=== PATIENT | female | born 1950 | race Caucasian/White ===

== ENCOUNTER → 2023-09-03 09:53 | Outpatient (REF) | payer MEDICARE, OTHER, SELFPAY ==
[2023-09-03 19:18] LABS: Urine Albumin 2+ (Neg - Trace); Urine Bilirubin 1+ (Negative); Urine Character Slightly Cloudy (Clear); Urine Color Yellow; Urine Glucose Negative (Negative); Urine Ketone Negative (Negative); Urine Leukocyte 2+ (Negative); Urine Nitrite Positive (Negative); Urine Occult Blood 4+ (Negative); Urine Specific Gravity 1.015 (<1.030); Urine Urobilinogen Negative (Neg - 1+)
[2023-09-03 19:25] LABS: Urine Bacteria Moderate (Negative); Urine White Cell >100 /HPF (0-5)
== END ==
LOC: CLAB 09:53
PROVIDERS: ATTENDING PHYSICIAN Nurse Practitioner Family
DX: R30.0 Dysuria (principal); R35.0 Frequency of micturition; Z13.89 Encounter for screening for other disorder
CPT/HCPCS: 81003; 81015; 87077; 87086; 87186

== ENCOUNTER → 2023-11-21 11:38 | Outpatient (REF) | payer MEDICARE, OTHER, SELFPAY ==
[2023-11-21 12:22] LABS: % Basophils 0.8 % (0-2); % Eosinophils 2.4 % (0-6); % Immature Granulocytes 0.1 % (0-0.5); % Lymphocytes 33.5 % (20.5-51.1); % Monocytes 9.3 % (1.7-9.3); % Neutrophils 53.9 % (42.2-75.2); Absolute Basophils 0.1 10^3/uL (0-0.2); Absolute Eosinophils 0.2 10^3/uL (0-0.7); Absolute Lymphocytes 2.7 10^3/uL (1.2-3.4); Absolute Monocytes 0.7 10^3/uL (0.1-0.6); Absolute Neutrophils 4.3 10^3/uL (1.4-6.5); Hematocrit 40.5 % (37.0-47.0); Hemoglobin 13.7 g/dL (12.0-16.0); Mean Corp Hgb Conc. 33.8 g/dL (33.0-37.0); Mean Corpuscular Hgb 29.2 pg (27.0-31.0); Mean Corpuscular Volume 86.4 fL (81.0-99.0); Mean Platelet Volume 10.3 fL (7.4-10.4); Nucleated Red Blood Cells % 0 %; Platelet Count 333 10^3/uL (130-400); Red Blood Cell Count 4.69 10^6/uL (4.20-5.40); Red Cell Dist. Width 13.3 % (11.5-14.5)
[2023-11-21 12:46] LABS: ALT (SGPT) 26 U/L (0-35); AST (SGOT) 23 U/L (14-36); Albumin 4.4 g/dl (3.5-5.0); Alkaline Phosphatase 62 U/L (38-126); Blood Urea Nitrogen 18 mg/dl (7-17); Calcium 9.9 mg/dl (8.4-10.2); Carbon Dioxide 29 mmol/L (22-30); Chloride 96 mmol/L (98-107); Glucose 118 mg/dl (70-99); HDL Cholesterol 70 mg/dl; LDL Cholesterol, Calculated 58 mg/dl; Potassium 4.3 mmol/L (3.5-5.1); Sodium 136 mmol/L (135-145); Total Bilirubin 0.7 mg/dl (0.2-1.3); Total Cholesterol 161 mg/dl (50-199); Triglyceride 165 mg/dl (10-149); Very Low Density Lipoprotein 33 mg/dl (0-30); eGFR > 60.00
[2023-11-21 14:14] LABS: Urine Albumin Negative (Neg - Trace); Urine Bilirubin Negative (Negative); Urine Character Clear (Clear); Urine Color Yellow; Urine Glucose Negative (Negative); Urine Ketone Negative (Negative); Urine Leukocyte 1+ (Negative); Urine Nitrite Negative (Negative); Urine Occult Blood Negative (Negative); Urine Specific Gravity 1.015 (<1.030); Urine Urobilinogen Negative (Neg - 1+)
[2023-11-21 15:19] LABS: Urine Amorphous Seen; Urine Red Blood Cell 0-2 /HPF (0-2); Urine Squamous Cell 16-20 /LPF (Few)
== END ==
LOC: REG 11:38
PROVIDERS: ATTENDING PHYSICIAN Internal Medicine Geriatric Medicine; REFERRING PHYSICIAN Internal Medicine Cardiovascular Disease
DX: R79.89 Other specified abnormal findings of blood chemistry (principal); E55.9 Vitamin D deficiency, unspecified; E78.00 Pure hypercholesterolemia, unspecified; I10 Essential (primary) hypertension; R32 Unspecified urinary incontinence; L53.9 Erythematous condition, unspecified; L72.3 Sebaceous cyst; R73.03 Prediabetes; E01.0 Iodine-deficiency related diffuse (endemic) goiter; M17.12 Unilateral primary osteoarthritis, left knee; G40.909 Epilepsy, unspecified, not intractable, without status epilepticus; Z87.39 Personal history of other diseases of the musculoskeletal system and connective tissue; Z13.31 Encounter for screening for depression; Z23 Encounter for immunization
CPT/HCPCS: 36415; 80053; 80061; 81003; 81015; 82306; 83704; 85025

== ENCOUNTER → 2024-03-19 11:38 | Outpatient (REF) | payer MEDICARE, OTHER, SELFPAY | LOC: WDC 11:38 | PROVIDERS: ATTENDING PHYSICIAN Internal Medicine Geriatric Medicine | DX: Z12.31 Encounter for screening mammogram for malignant neoplasm of breast (principal) | CPT/HCPCS: 77063; 77067 ==

== ENCOUNTER → 2024-04-06 11:08 | Outpatient (REF) | payer MEDICARE, OTHER, SELFPAY ==
[2024-04-06 12:31] LABS: % Basophils 0.9 % (0-2); % Eosinophils 1.8 % (0-6); % Immature Granulocytes 0.3 % (0-0.5); % Lymphocytes 30.8 % (20.5-51.1); % Monocytes 12.6 % (1.7-9.3); % Neutrophils 53.6 % (42.2-75.2); Absolute Basophils 0.1 10^3/uL (0-0.2); Absolute Eosinophils 0.1 10^3/uL (0-0.7); Absolute Lymphocytes 2.4 10^3/uL (1.2-3.4); Absolute Neutrophils 4.1 10^3/uL (1.4-6.5); Hematocrit 41.1 % (37.0-47.0); Hemoglobin 14.2 g/dL (12.0-16.0); Mean Corp Hgb Conc. 34.5 g/dL (33.0-37.0); Mean Corpuscular Hgb 29.7 pg (27.0-31.0); Mean Platelet Volume 10.6 fL (7.4-10.4); Nucleated Red Blood Cells % 0 %; Platelet Count 322 10^3/uL (130-400); Red Blood Cell Count 4.78 10^6/uL (4.20-5.40); White Blood Cell Count 7.7 10^3/uL (4.8-10.8)
[2024-04-06 13:25] LABS: ALT (SGPT) 24 U/L (0-35); AST (SGOT) 21 U/L (14-36); Albumin 4.8 g/dl (3.5-5.0); Alkaline Phosphatase 53 U/L (38-126); Blood Urea Nitrogen 20 mg/dl (7-17); Calcium 9.9 mg/dl (8.4-10.2); Carbon Dioxide 31 mmol/L (22-30); Chloride 90 mmol/L (98-107); Glucose 102 mg/dl (70-99); Potassium 4.3 mmol/L (3.5-5.1); Sodium 132 mmol/L (135-145); Total Bilirubin 0.9 mg/dl (0.2-1.3); Total Protein 7.1 g/dl (6.3-8.2); eGFR > 60.00
[2024-04-06 13:33] LABS: Glycohemoglobin (HgbA1c) 6.3 % (4.0-5.6)
== END ==
LOC: REG 11:08
PROVIDERS: ATTENDING PHYSICIAN Internal Medicine Geriatric Medicine; REFERRING PHYSICIAN Internal Medicine Cardiovascular Disease
DX: R32 Unspecified urinary incontinence (principal); L53.9 Erythematous condition, unspecified; L72.3 Sebaceous cyst; I10 Essential (primary) hypertension; E78.2 Mixed hyperlipidemia; R73.03 Prediabetes; E01.0 Iodine-deficiency related diffuse (endemic) goiter; M17.12 Unilateral primary osteoarthritis, left knee; G40.909 Epilepsy, unspecified, not intractable, without status epilepticus; Z87.39 Personal history of other diseases of the musculoskeletal system and connective tissue; Z13.31 Encounter for screening for depression; E55.9 Vitamin D deficiency, unspecified; E87.1 Hypo-osmolality and hyponatremia
CPT/HCPCS: 36415; 80053; 83036; 85025

== ENCOUNTER → 2024-11-06 11:13 | Outpatient (REF) | payer MEDICARE, OTHER, SELFPAY ==
[2024-11-06 12:23] LABS: ALT (SGPT) 24 U/L (0-35); AST (SGOT) 18 U/L (14-36); Albumin 4.9 g/dl (3.5-5.0); Alkaline Phosphatase 55 U/L (38-126); Blood Urea Nitrogen 28 mg/dl (7-17); Calcium 9.9 mg/dl (8.4-10.2); Carbon Dioxide 28 mmol/L (22-30); Chloride 97 mmol/L (98-107); Glucose 120 mg/dl (70-99); HDL Cholesterol 74 mg/dl; LDL Cholesterol, Calculated 76 mg/dl; Potassium 4.7 mmol/L (3.5-5.1); Sodium 138 mmol/L (135-145); Total Bilirubin 0.8 mg/dl (0.2-1.3); Total Cholesterol 169 mg/dl (50-199); Total Protein 7.4 g/dl (6.3-8.2); Triglyceride 96 mg/dl (10-149); Very Low Density Lipoprotein 19 mg/dl (0-30); eGFR > 60.00
[2024-11-06 12:36] LABS: Urine Albumin 1+ (Neg - Trace); Urine Bilirubin Negative (Negative); Urine Character Clear (Clear); Urine Color Yellow; Urine Glucose Negative (Negative); Urine Ketone Negative (Negative); Urine Leukocyte 2+ (Negative); Urine Nitrite Negative (Negative); Urine Occult Blood Negative (Negative); Urine Urobilinogen Negative (Neg - 1+)
[2024-11-06 12:55] LABS: TSH Reflex To Free T4 0.69 uIU/ml (0.47-4.68)
[2024-11-06 13:01] LABS: Urine Protein < 5 mg/dl
[2024-11-06 13:14] LABS: Vitamin B12 556 pg/ml (239-931)
[2024-11-06 13:53] LABS: Urine Bacteria Few (Negative); Urine Red Blood Cell 0-2 /HPF (0-2); Urine Squamous Cell >30 /LPF (Few)
[2024-11-06 14:00] LABS: Glycohemoglobin (HgbA1c) 6.3 % (4.0-5.6)
[2024-11-08 12:53] LABS: Lyme Antibody Screen, EIA Negative (Negative)
[2024-11-08 17:53] LABS: ANA, IgG Reflex to HEp-2 Detected (None Detected)
[2024-11-08 18:45] LABS: Hepatitis C Antibody Negative (Negative)
[2024-11-08 22:16] LABS: Albumin 4.37 g/dL (3.75-5.01); Alpha 1 Globulin 0.28 g/dL (0.19-0.46); Alpha 2 Globulin 0.71 g/dL (0.48-1.05); SPEP IFE Reflex Not Done; Total Protein-Electrophoresis 7.2 g/dL (6.3-8.2)
== END ==
LOC: REG 11:13
PROVIDERS: ATTENDING PHYSICIAN Nurse Practitioner Primary Care; FAMILY PHYSICIAN Internal Medicine Geriatric Medicine; REFERRING PHYSICIAN Internal Medicine Cardiovascular Disease
DX: E78.2 Mixed hyperlipidemia (principal); R73.03 Prediabetes; E04.2 Nontoxic multinodular goiter; E55.9 Vitamin D deficiency, unspecified; I10 Essential (primary) hypertension; R32 Unspecified urinary incontinence; L53.9 Erythematous condition, unspecified; E01.0 Iodine-deficiency related diffuse (endemic) goiter; M17.12 Unilateral primary osteoarthritis, left knee; G40.909 Epilepsy, unspecified, not intractable, without status epilepticus; Z87.39 Personal history of other diseases of the musculoskeletal system and connective tissue; E87.1 Hypo-osmolality and hyponatremia; G62.9 Polyneuropathy, unspecified; E78.9 Disorder of lipoprotein metabolism, unspecified; R79.89 Other specified abnormal findings of blood chemistry; R73.09 Other abnormal glucose; E78.00 Pure hypercholesterolemia, unspecified; E11.9 Type 2 diabetes mellitus without complications; D51.9 Vitamin B12 deficiency anemia, unspecified; E53.1 Pyridoxine deficiency
CPT/HCPCS: 36415; 80053; 80061; 81003; 81015; 82306; 82570; 82607; 83036; 84155; 84156; 84165; 84207; 84425; 84443; 86038; 86618; 86803

== ENCOUNTER → 2024-11-23 13:24 | Outpatient (REF) | payer MEDICARE, OTHER, SELFPAY ==
[2024-11-25 23:49] LABS: ANA, IgG Reflex to HEp-2 Detected (None Detected)
== END ==
LOC: REG 13:24
PROVIDERS: ATTENDING PHYSICIAN Internal Medicine Geriatric Medicine
DX: R76.8 Other specified abnormal immunological findings in serum (principal)
CPT/HCPCS: 36415; 86038

== ENCOUNTER → 2025-01-13 12:30 | Outpatient (REF) | payer MEDICARE, OTHER, SELFPAY ==
[2025-01-17 08:37] LABS: ANA, IgG Reflex to HEp-2 Detected (None Detected)
[2025-01-19 07:02] LABS: ANA, HEp-2, IgG Detected (<1:80)
[2025-01-19 07:06] LABS: ANA Pattern Homogeneous; ANA Titer 1:320
== END ==
LOC: REG 12:30
PROVIDERS: ATTENDING PHYSICIAN Internal Medicine Geriatric Medicine
DX: R76.8 Other specified abnormal immunological findings in serum (principal)
CPT/HCPCS: 36415; 86038; 86039

== ENCOUNTER → 2025-02-25 09:18 | Outpatient (REF) | payer MEDICARE, OTHER, SELFPAY | LOC: RCS 09:18 | PROVIDERS: ATTENDING PHYSICIAN Internal Medicine Cardiovascular Disease; FAMILY PHYSICIAN Internal Medicine Geriatric Medicine | DX: R93.1 Abnormal findings on diagnostic imaging of heart and coronary circulation (principal); R01.1 Cardiac murmur, unspecified; I10 Essential (primary) hypertension | CPT/HCPCS: 93306 ==

== ENCOUNTER → 2025-04-19 11:03 | Outpatient (REF) | payer MEDICARE, OTHER, SELFPAY | LOC: WDC 11:03 | PROVIDERS: ATTENDING PHYSICIAN Internal Medicine Geriatric Medicine | DX: Z12.39 Encounter for other screening for malignant neoplasm of breast (principal); Z12.31 Encounter for screening mammogram for malignant neoplasm of breast | CPT/HCPCS: 77063; 77067 ==

== ENCOUNTER → 2025-05-20 11:19 | Outpatient (REF) | payer MEDICARE, OTHER, SELFPAY ==
[2025-05-20 12:31] LABS: Hematocrit 38.8 % (37.0-47.0); Hemoglobin 12.8 g/dL (12.0-16.0); Mean Corp Hgb Conc. 33.0 g/dL (33.0-37.0); Mean Corpuscular Volume 87.2 fL (81.0-99.0); Nucleated Red Blood Cells % 0 %; Platelet Count 326 10^3/uL (130-400); Red Cell Dist. Width 13.2 % (11.5-14.5)
[2025-05-20 12:52] LABS: ALT (SGPT) 26 U/L (0-35); AST (SGOT) 20 U/L (14-36); Albumin 4.5 g/dl (3.5-5.0); Alkaline Phosphatase 59 U/L (38-126); Blood Urea Nitrogen 18 mg/dl (7-17); Calcium 9.5 mg/dl (8.4-10.2); Carbon Dioxide 33 mmol/L (22-30); Chloride 97 mmol/L (98-107); Glucose 105 mg/dl (70-99); HDL Cholesterol 69 mg/dl; LDL Cholesterol, Calculated 57 mg/dl; Potassium 4.0 mmol/L (3.5-5.1); Sodium 136 mmol/L (135-145); Total Protein 7.0 g/dl (6.3-8.2); Very Low Density Lipoprotein 27 mg/dl (0-30); eGFR > 60.00
[2025-05-20 13:09] LABS: Vitamin D, 25-OH*** 49.4 ng/mL (30-80)
[2025-05-20 13:14] LABS: Urine Character Clear (Clear)
[2025-05-20 14:59] LABS: Urine Squamous Cell >30 /LPF (Few); Urine Urothelial Cell 0-2 /LPF (FEW); Urine White Cell 50-60 /HPF (0-5)
[2025-05-21 09:14] LABS: Glycohemoglobin (HgbA1c) 6.6 % (4.0-5.9)
== END ==
LOC: REG 11:19
PROVIDERS: ATTENDING PHYSICIAN Internal Medicine Geriatric Medicine
DX: Z00.00 Encounter for general adult medical examination without abnormal findings (principal); Z79.899 Other long term (current) drug therapy; R73.03 Prediabetes; R82.90 Unspecified abnormal findings in urine; R73.01 Impaired fasting glucose; R79.9 Abnormal finding of blood chemistry, unspecified; R79.89 Other specified abnormal findings of blood chemistry; E78.1 Pure hyperglyceridemia
CPT/HCPCS: 36415; 80053; 80061; 81003; 81015; 82306; 83036; 85025